=== PATIENT | male | born 1945 | race Caucasian/White ===

== ENCOUNTER 2018-06-22 17:47 | Emergency (ER) | payer OTHER ==
[~2018-06-22] VITALS: Ht 172.7 cm; Wt 111.1 kg
[2018-06-22] MEDS ORDERED: GLIPIZIDE XL5 MG (20:01)
[2018-06-22] MEDS ORDERED: METFORMIN HCL500 MG (20:02)
[2018-06-22] MEDS ORDERED: ASA81 MG (20:02)
[2018-06-22] MEDS ORDERED: AVAPRO300 MG (20:02)
[2018-06-22] MEDS ORDERED: AMLODIPINE BESYL5 MG (20:02)
[2018-06-22] MEDS ORDERED: LORADAMED10 MG (20:03)
[2018-06-22] MEDS ORDERED: ZYRTEC10 M3 (20:03)
[2018-06-22] MEDS ORDERED: BIOXTRON (20:03)
[2018-06-22] MEDS ORDERED: ULTRAM50 MG PO (23:27)
== END 2018-06-23 02:07 | disposition home or self-care (01) ==
LOC: ER 17:47
DX: S80.01XA Contusion of right knee, initial encounter (principal); W18.09XA Striking against other object with subsequent fall, initial encounter; Y93.89 Activity, other specified; Y92.018 Other place in single-family (private) house as the place of occurrence of the external cause; Y99.8 Other external cause status

== ENCOUNTER 2018-07-09 10:32 | Outpatient (CLI) | payer OTHER ==
[~2018-07-09 10:32] MED LIST: AMLODIPINE BESYL5 MG; ASA81 MG; AVAPRO300 MG; BIOXTRON; GLIPIZIDE XL5 MG; LORADAMED10 MG; METFORMIN HCL500 MG; ULTRAM50 MG PO; ZYRTEC10 M3
== END 2018-07-09 17:00 | disposition home or self-care (01) ==
LOC: RAD 10:32
DX: M25.561 Pain in right knee (principal); M25.562 Pain in left knee

== ENCOUNTER 2018-07-11 09:27 | Outpatient (CLI) | payer OTHER | END 2018-07-11 09:37 | disposition home or self-care (01) | LOC: MRI 09:27 | DX: M25.561 Pain in right knee (principal) | CPT/HCPCS: 73721 ==

== ENCOUNTER 2018-07-16 14:28 | Outpatient (CLI) | payer OTHER ==
[2018-07-25] MEDS ORDERED: FENOFIBRATE160 MG (11:08)
[2018-07-25] MEDS ORDERED: AVAPRO300 MG PO (11:09)
[2018-07-25] MEDS ORDERED: AMLODIPINE BESYL5 MG PO (11:10)
[2018-07-25] MEDS ORDERED: ALL DAY ALLERGY10 M3 PO (11:10)
== END 2018-07-16 14:33 | disposition home or self-care (01) ==
LOC: RAD 14:28
DX: I10 Essential (primary) hypertension (principal)

== ENCOUNTER 2018-07-29 05:25 | Day surgery (SDC) | payer OTHER ==
[~2018-07-29 05:25] MED LIST changes: +ALL DAY ALLERGY10 M3 PO; +AMLODIPINE BESYL5 MG PO; +AVAPRO300 MG PO; +FENOFIBRATE160 MG
[2018-07-29] MEDS ORDERED: PERCOCET 5-3251 EACH PO (09:44)
[2018-07-29] MEDS ORDERED: NABUMETONE500 MG PO (09:44)
== END 2018-07-29 14:40 | disposition home or self-care (01) ==
LOC: CIR.AMB 05:25
DX: M23.321 Other meniscus derangements, posterior horn of medial meniscus, right knee (principal); M23.351 Other meniscus derangements, posterior horn of lateral meniscus, right knee; M94.261 Chondromalacia, right knee; M65.861 Other synovitis and tenosynovitis, right lower leg; M13.861 Other specified arthritis, right knee

== ENCOUNTER 2025-05-03 08:17 | Outpatient (CLI) | payer OTHER ==
[~2025-05-03 08:17] MED LIST changes: +NABUMETONE500 MG PO; +PERCOCET 5-3251 EACH PO
== END 2025-05-03 08:20 | disposition home or self-care (01) ==
LOC: SONOGRAMA 08:17
PROVIDERS: ATTEND Pathology Anatomic Pathology
DX: D34 Benign neoplasm of thyroid gland (principal); E07.89 Other specified disorders of thyroid; E04.1 Nontoxic single thyroid nodule